=== PATIENT | female | born 1990 | race American Indian/Alaskan Native ===

== ENCOUNTER 2019-09-14 11:10 | Emergency (ER) | payer SELFPAY ==
[2019-09-14] MEDS ORDERED: ONDANSETRON 4 MG/2 ML INJ IV ONE (12:06)
[2019-09-14] MEDS ORDERED: KETOROLAC 30 MG/1 ML INJ IV ONE (12:06)
--- NOTE | 2019-09-14 12:11 | Emergency Department Report ---
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 Patient stated that she always have pain with her but today is just really worse. Patient is actively vomiting in the emergency room. Patient denied any fever or chills. MD Complaint: abdominal pain -: Sudden Location: suprapubic Radiation: none Severity scale (0 -10): 10 Quality: sharp Consistency: constant - Related Data Allergies Allergy/AdvReac Type Severity Reaction Status Date / Time No Known Allergies Allergy Unverified 09/14/19 12:34 ED Review of Systems ROS: Stated complaint: ABD PAIN Other details as noted in HPI Comment: All other systems reviewed and negative Constitutional: denies: chills, fever Cardiovascular: denies: chest pain Gastrointestinal: abdominal pain, nausea, vomiting. denies: diarrhea, constipation, hematemesis, melena, hematochezia Genitourinary: denies: urgency, dysuria Musculoskeletal: denies: back pain Neurological: denies: headache, weakness, numbness, paresthesias, confusion, abnormal gait ED Past Medical Hx - Past Medical History Previous Medical History?: No - Surgical History Past Surgical History?: No - Social History Smoking Status: Never Smoker Substance Use Type: Marijuana ED Physical Exam - General Limitations: No Limitations General appearance: alert, in distress (Moderate distress secondary to pain.) - Head Head exam: Present: atraumatic, normocephalic, normal inspection - Eye Eye exam: Present: normal appearance - ENT ENT exam: Present: normal exam, normal orophraynx, mucous membranes moist - Neck Neck exam: Present: normal inspection, full ROM. Absent: tenderness, meningismus - Respiratory Respiratory exam: Present: normal lung sounds bilaterally - Cardiovascular Cardiovascular Exam: Present: regular rate, normal rhythm, normal heart sounds - GI/Abdominal GI/Abdominal exam: Present: soft, normal bowel sounds. Absent: distended, tenderness, guarding, rebound, rigid, organomegaly, mass, bruit, pulsatile mass, hernia - Extremities Exam Extremities exam: Present: normal inspection, full ROM, normal capillary refill. Absent: tenderness, pedal edema, calf tenderness - Back Exam Back exam: Present: normal inspection, full ROM. Absent: CVA tenderness (R), CVA tenderness (L) - Neurological Exam Neurological exam: Present: alert, oriented X3, CN II-XII intact, normal gait, reflexes normal - Psychiatric Psychiatric exam: Present: normal mood - Skin Skin exam: Present: warm, intact, normal color ED Course Vital Signs 09/14/19 09/14/19 11:49 13:00 Temperature 97.4 F L Pulse Rate 70 70 Respiratory 16 18 Rate Blood Pressure 108/74 103/63 [Left] O2 Sat by Pulse 100 100 Oximetry ED Medical Decision Making - Lab Data Result diagrams: 09/14/19 12:14 09/14/19 12:14 - Radiology Data Radiology results: report reviewed - Medical Decision Making Patient is 29 years old female with no significant past medical history except for 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 Patient stated that she always have pain with her but today is just really worse. Patient is actively vomiting in the emergency room. Patient denied any fever or chills. Patient received multiple doses of different medication for pain and nausea. Labs reviewed and is unremarkable. CT abdomen and pelvis with IV contrast is negative for acute finding. Patient advised to follow-up with her primary care physician in the next 2 to 3 days and to return to the ER if she develop anything new. Critical care attestation.: If time is entered above; I have spent that time in minutes in the direct care of this critically ill patient, excluding procedure time. ED Disposition Clinical Impression: Abdominal pain Disposition: DC-01 TO HOME OR SELFCARE Is pt being admited?: No Condition: Stable Instructions: Abdominal Pain (ED) Referrals: PRIMARY CARE, [Primary Care Provider] - 3-5 Days
[2019-09-14 12:24] LABS: Basophils % (Auto) 0.3 % (0.0-1.8); Hematocrit 38.8 % (30.3-42.9); Hemoglobin 13.1 gm/dl (10.1-14.3); Lymphocytes # (Auto) 1.1 K/mm3 (1.2-5.4); Lymphocytes % (Auto) 12.9 % (13.4-35.0); Mean Corpuscular HGB Conc 34 % (30-34); Mean Corpuscular Volume 94 fl (79-97); Monocytes # (Auto) 0.6 K/mm3 (0.0-0.8); Monocytes % (Auto) 6.6 % (0.0-7.3); Platelet Count 352 K/mm3 (140-440); Red Blood Count 4.14 M/mm3 (3.65-5.03); Red Cell Distribution Width 13.1 % (13.2-15.2)
[2019-09-14] MEDS ORDERED: MORPHINE 4 MG/1 ML INJ IV ONE (13:00)
[2019-09-14 13:32] LABS: Bilirubin,Urine NEG (Negative); Blood,Urine NEG (Negative); Color,Urine Amber (Yellow); Mucus,Urine 3+ /HPF
[2019-09-14 13:40] LABS: BUN/Creatinine Ratio 14; Blood Urea Nitrogen 10 mg/dL (7-17); Calcium 9.9 mg/dL (8.4-10.2); Hemolysis Index 50
[2019-09-14] MEDS ORDERED: METOCLOPRAMIDE 10 MG/2 ML INJ IV ONE (13:54)
--- NOTE | 2019-09-14 15:29 | Cat Scan Report ---
CT ABDOMEN AND PELVIS WITH CONTRAST HISTORY: abdominal pain, Per pt tumor removed from stomach x few yrs ago ONIMAPQUE 300 . 100ML COMPARISON: None. TECHNIQUE: Axial CT images were obtained through the abdomen and pelvis after 100 cc of Omnipaque 300 intravenously. Sagittal and coronal reformatted images. All CT scans at this location are performed using CT dose reduction for ALARA by means of automated exposure control. FINDINGS: CT ABDOMEN: Lung Bases: Clear. Liver: The liver is mildly enlarged with mild fatty infiltration. No focal liver lesion. Biliary: No significant abnormality. Spleen: No significant abnormality. Unenlarged. Pancreas: No significant abnormality. Adrenals: No significant abnormality. Kidneys: No significant abnormality. Lymphatics: No lymphadenopathy. Vasculature: No significant abnormality. Bowel/Peritoneum: No significant abnormality. No free air. No free fluid. The appendix is not confide ntly identified. CT PELVIS: : No significant abnormality. Osseous Structures: No significant abnormality. Additional Findings: None IMPRESSION: No acute inflammatory process is appreciated. Mild hepatomegaly with diffuse fatty infiltration. Signer Name: Fito Hopson Jr, MD Signed: 09/14/2019 3:25 PM Workstation Name: [id number]
[2019-09-14] MEDS ORDERED: DICYCLOMINE 20 MG/2 ML INJ IM ONE (15:40)
[2019-09-14] MEDS ORDERED: diphenhydrAMINE 50 MG/ML VIAL IV ONE (15:40)
[2019-09-14 16:08] VITALS: BP 110/72
== END 2019-09-14 16:09 | disposition home or self-care (01) ==
LOC: ED 11:10
DX: R10.9 Unspecified abdominal pain (principal); F12.90 Cannabis use, unspecified, uncomplicated
CPT/HCPCS: 36415; 74177; 80048; 81001; 83690; 84703; 85025; 96374; 96375; 99284; J0500; J1200; J1885; J2270; J2405; J2765; Q9967